=== PATIENT | female | born 1980 | race Two or more races ===

== ENCOUNTER 2021-03-29 03:44 | Inpatient (IN) | payer BC ==
[~2021-03-29] VITALS: Ht 157.5 cm; Wt 56.7 kg
--- NOTE | 2021-03-29 03:55 | NUR ---
blood obtained and sent to lab
--- NOTE | 2021-03-29 03:55 | NUR ---
pt bibself c/o LLQ abd pain and vomiting x6hrs. Pt aaox4 breathing evenly and unlabored. Pt states that she "ate nothing out of the ordinary". Pt attached to monitor and pox. MD at bedside for eval. Pt given blanket and call light with in reach.
[2021-03-29] MEDS ORDERED: MORPHINE SULFATE INJ 2 MG/ML DISP.SYRIN IV ONE ×2 (04:00→06:30)
[2021-03-29] MEDS ORDERED: IV NS 0.9% 1,000 ML BAG IV ONE (04:00)
[2021-03-29] MEDS ORDERED: ONDANSETRON HCL/PF 4 MG/2 ML VIAL IVP ONE (04:00)
[2021-03-29] MEDS ORDERED: ONDANSETRON HCL/PF 4 MG/2 ML VIAL ONE (04:08)
[2021-03-29] MEDS ORDERED: MORPHINE SULFATE INJ 4 MG/ML DISP.SYRIN ONE ×2 (04:09→06:17)
[2021-03-29 04:11] LABS: BILIRUBIN,URINE Negative (NEGATIVE); COLOR,URINE YELLOW (YELLOW); LEUKOCYTE ESTERASE ,URINE Negative (NEGATIVE); NITRITE, URINE Negative (NEGATIVE); PROTEIN,URINE Negative (NEGATIVE); UGLUCOSE Negative (NEGATIVE); UROBILINOGEN,URINE 0.2 EU/dL (0.2)
[2021-03-29 04:14] LABS: BASOPHILS # (AUTO) 0.1 K/uL (0.0-0.2); BASOPHILS % (AUTO) 0.5 % (0.0-2.0); EOSINOPHILS % (AUTO) 0.6 % (0.0-6.0); HEMATOCRIT 36 % (33-45); HEMOGLOBIN 11.6 g/dL (11.5-14.8); LYMPHOCYTES # (AUTO) 1.7 K/uL (0.8-4.8); LYMPHOCYTES % (AUTO) 15.4 % (20.0-44.0); MEAN CORPUSCULAR HGB CONC 32 g/dl (31.0-36.0); MEAN CORPUSCULAR VOLUME 81 fL (82-100); MONOCYTES # (AUTO) 0.6 K/uL (0.1-1.30); MONOCYTES % (AUTO) 5.4 % (2.0-12.0); NEUTROPHILS # (AUTO) 8.8 K/uL (1.8-8.9); NEUTROPHILS % (AUTO) 78.1 % (43.0-81.0); PLATELET COUNT (AUTO) 304 K/uL (150-450); RED BLOOD CELL COUNT(AUTO) 4.43 MIL/uL (4.0-5.2); WHITE BLOOD COUNT (AUTO) 11.3 K/uL (4.3-11.0)
[2021-03-29 04:26] LABS: CALCIUM, SERUM 8.2 mg/dL (8.5-10.1); CREATININE 0.6 mg/dL (0.6-1.3); POTASSIUM 3.8 mmol/L (3.5-5.1)
[2021-03-29 04:32] LABS: ALBUMIN 3.6 g/dL (3.4-5.0); BILIRUBIN,DIRECT 0.1 mg/dL (0.0-0.2); BILIRUBIN,TOTAL 0.4 mg/dL (0.2-1.0)
--- NOTE | 2021-03-29 04:34 | NUR ---
Brought back from CT
--- NOTE | 2021-03-29 05:21 | NUR ---
called opal to have image read
--- NOTE | 2021-03-29 05:43 | NUR ---
radiologist speaking with dr jenkins
--- NOTE | 2021-03-29 05:49 | NUR ---
called Dr Hopkins and left a message
--- NOTE | 2021-03-29 05:53 | NUR ---
AMANDA ESCOBAR PERFUMER PAGED FOR ADMOSSION.
[2021-03-29] MEDS ORDERED: PIPERACILLIN /TAZOBACTAM 3.375 G VIAL IV ONE ×2 (05:54→11:58)
[2021-03-29] MEDS ORDERED: PIPERACILLIN /TAZOBACTAM 3.375 G in IV D5W 50 ML IV ONE (06:00)
--- NOTE | 2021-03-29 06:03 | NUR ---
roshni carpenter speaking with dr jenkins
--- NOTE | 2021-03-29 06:15 | NUR ---
md verbal order 4mg morphine iv
[2021-03-29] MEDS ORDERED: ONDANSETRON HCL/PF 4 MG/2 ML VIAL IVP PRN (06:30)
--- NOTE | 2021-03-29 06:32 | NUR ---
called dr steele, left a message
--- NOTE | 2021-03-29 07:05 | NUR ---
GAVE REPORT TO MARI IBANEZ FOR RANDELL
--- NOTE | 2021-03-29 07:19 | NUR ---
ASSESSED PT ON BED ASLEEP, EASILY AROUSABLE, NOT IN RESPIRATORY DISTRESS, V/S STABLE. KEPT RESTED AND COMFORTABLE. WILL CONTINUE TO MONITOR.
--- NOTE | 2021-03-29 07:43 | NUR ---
DR VELASQUEZ CALLED AND SPOKE WITH DR RODRIGUEZ
--- NOTE | 2021-03-29 07:56 | NUR ---
OBIE POPE CALLED, NO BED AT THIS TIME
[2021-03-29] MEDS: PANTOPRAZOLE 40 MG VIAL IV SCH (09:13)
[2021-03-29] MEDS ORDERED: PANTOPRAZOLE 40 MG VIAL ONE (09:13)
[2021-03-29] MEDS ORDERED: MORPHINE SULFATE INJ 2 MG/ML DISP.SYRIN ONE (10:48)
[2021-03-29] MEDS: MORPHINE SULFATE INJ 2 MG/ML DISP.SYRIN IV PRN ×3 (10:49→22:36)
[2021-03-29] MEDS: PIPERACILLIN /TAZOBACTAM 3.375 G in IV D5W 50 ML IV SCH ×3 (12:08→23:42)
--- NOTE | 2021-03-29 14:12 | NUR ---
room 310-1
--- NOTE | 2021-03-29 14:22 | NUR ---
REPORT GIVEN TO MARI OSBORN FOR RANDELL.
--- NOTE | 2021-03-29 14:40 | NUR ---
pt. brought up to rm. by er.made comfortable.vs taken.
--- NOTE | 2021-03-29 15:00 | NUR ---
PT. REMAINS NPO,PT AND PTT ORDERED AND ADDED TO LABS,PROBABLE SURG. NO WORD FROM SURGEON.
--- NOTE | 2021-03-29 18:00 | NUR ---
SPOUSE IN TO VISIT.
[2021-03-29 20:00] VITALS: BP 100/56
--- NOTE | 2021-03-29 20:00 | NUR ---
Patient is awake, A&Ox4. VSS. IN no distress. Only c/o is tolerable abdominal pain at this time, worst in R lower quadrant. Patient is NPO. Educated that once she is seen by Dr. Hopkins we will be more clear about the appendectomy.
--- NOTE | 2021-03-29 20:30 | NUR ---
Patient seen by Dr. Hopkins, Tomorrow to have laparoscopic appendectomy poss. open exp. laparotomy. Hopefully to be scheduled at [address] Hopkins. educated patient on procedure.
[2021-03-29] MEDS: IV D5/0.45 NACL 1,000 ML IV PRN (21:14)
[2021-03-30] MEDS: PIPERACILLIN /TAZOBACTAM 3.375 G in IV D5W 50 ML IV SCH (05:40)
[2021-03-30] MEDS: MORPHINE SULFATE INJ 2 MG/ML DISP.SYRIN IV PRN ×4 (05:46→22:03)
--- NOTE | 2021-03-30 06:08 | NUR ---
MS RN CLOSING NOTES Patient is A&Ox4, VSS. Slept well. C/o sharp pain to abdomen x2, relieved with PRN Morphine. Tolerating IVF well, stayed NPO. No other overnight issues. Consents signed.
[2021-03-30 06:19] LABS: BASOPHILS % (AUTO) 0.3 % (0.0-2.0); EOSINOPHILS % (AUTO) 0.9 % (0.0-6.0); HEMATOCRIT 33 % (33-45); HEMOGLOBIN 10.7 g/dL (11.5-14.8); LYMPHOCYTES # (AUTO) 1.3 K/uL (0.8-4.8); LYMPHOCYTES % (AUTO) 15.2 % (20.0-44.0); MEAN CORPUSCULAR HGB CONC 33 g/dl (31.0-36.0); MEAN CORPUSCULAR VOLUME 82 fL (82-100); MONOCYTES # (AUTO) 0.5 K/uL (0.1-1.30); MONOCYTES % (AUTO) 5.9 % (2.0-12.0); NEUTROPHILS # (AUTO) 6.9 K/uL (1.8-8.9); NEUTROPHILS % (AUTO) 77.7 % (43.0-81.0); PLATELET COUNT (AUTO) 237 K/uL (150-450); RED BLOOD CELL COUNT(AUTO) 3.99 MIL/uL (4.0-5.2); WHITE BLOOD COUNT (AUTO) 8.8 K/uL (4.3-11.0)
[2021-03-30 07:04] LABS: CALCIUM, SERUM 7.8 mg/dL (8.5-10.1); CREATININE 0.7 mg/dL (0.6-1.3); POTASSIUM 3.8 mmol/L (3.5-5.1)
--- NOTE | 2021-03-30 07:10 | NUR ---
MS RN OPENING NOTE PATIENT ON BED ALERT AND ORIENTED X 4. PATIENT IS ON ROOM AIR WITH NO SIGNS OF RESPIRATORY DISTRESS WITH EVEN AND UNLABORED BREATHING. PATIENT WITH IV ACCESS ON LEFT AC G20 WITH IVF OF D5 1/2NS RUNNING AT 75ML/HR INFUSING WELL. PATIENT KEPT ON NPO FOR PENDING PROCEDURE WITH CONSENTS SIGNED AND ATTACHED TO CHART. SAFETY MEASURES ENSURED. BED LOCKED IN POSITION AND PLACED IN LOWEST POSITION. CALL LIGHT AND BEDSIDE TABLE WITHIN REACH AT ALL TIMES. WILL CONTINUE TO MONITOR PATIENT.
[2021-03-30 08:00] VITALS: BP 93/48
[2021-03-30] MEDS: PANTOPRAZOLE 40 MG VIAL IV SCH (08:52)
[2021-03-30] MEDS ORDERED: BUPIVACAINE MPF 0.5% W/EPI INJ 30 ML VIAL ONE (09:56)
[2021-03-30] MEDS ORDERED: ANESTHESIA TRAY IN PYXIS 1 EA TRAY MC ONE (09:56)
[2021-03-30] MEDS ORDERED: LIDOCAINE 1% INJ 50 ML MDV IJ ONE (09:56)
[2021-03-30] MEDS ORDERED: FENTANYL PF 100MCG/2ML AMPUL ONE (09:57)
[2021-03-30] MEDS ORDERED: ROCURONIUM BROMIDE 50 MG/5 ML ONE (09:58)
--- NOTE | 2021-03-30 10:00 | NUR ---
MS RN NOTES PATIETN PICKED UP BY OR NURSES FOR SCHEDULED PROCEDURE. PATIENT IN STABLE CONDITION. WILL WAIT FOR ANY DEVELOPMENT.
[2021-03-30] MEDS ORDERED: BACITRACIN ZINC OINT PACKET 1 EA PACKET TP ONE (11:19)
[2021-03-30] MEDS: IV D5/0.45 NACL 1,000 ML IV PRN (12:30)
--- NOTE | 2021-03-30 12:40 | NUR ---
MS RN NOTES PATIENT BACK FROM OR WITH NO SIGNS OF DISTRESS. PATIENT IS ALERT AND ORIENTED X 4. COMFORT MEASURES PROVIDED. WITH ORDERS FROM DR. VELASQUEZ, FAXED TO PHARMACY BY OR NURSE. WILL CONTINUE TO MONITOR PATIENT.
[2021-03-30] MEDS: PIPERACILLIN /TAZOBACTAM 3.375 G in IV D5W 100 ML IV SCH ×2 (12:50→21:42)
[2021-03-30] MEDS ORDERED: GABAPENTIN 300 MG CAPSULE PO SCH (14:00)
[2021-03-30] MEDS ORDERED: ACETAMINOPHEN 325 MG TABLET PO SCH (14:00)
[2021-03-30] MEDS ORDERED: IV LR 1000 ML 1,000 ML IV PRN (14:00)
[2021-03-30] MEDS ORDERED: IBUPROFEN 400 MG TABLET PO SCH (14:00)
[2021-03-30 16:00] VITALS: BP 104/57
--- NOTE | 2021-03-30 19:00 | NUR ---
MS RN CLOSING NOTE PATIENT ON BED ALERT AND ORIENTED X 4. PATIENT IS ON ROOM AIR WITH NO SIGNS OF RESPIRATORY DISTRESS WITH EVEN AND UNLABORED BREATHING. PATIENT WITH IV ACCESS ON LEFT HAND G20 WITH IVF OF D5 1/2NS RUNNING AT 75ML/HR INFUSING WELL. PATIENT ON CLEAR LIQUID DIET TOLERATED WELL. PATIENT ALSO AMBULATES AND USES THE BATROOM. WITH POSITIVE FLATUS. ON PAIN MANAGEMENT. SAFETY MEASURES ENSURED. BED LOCKED IN POSITION AND PLACED IN LOWEST POSITION. CALL LIGHT AND BEDSIDE TABLE WITHIN REACH AT ALL TIMES. ENDORSED TO NEXT SHIFT FOR CONTINUITY OF CARE.
--- NOTE | 2021-03-30 19:40 | NUR ---
MSRN RECEIVED AWAKE ON BED WITH IVF INFUSING WELL VIA LEFT HAND. NO NEEDS OF THIS TIME. CONTINUED.
[2021-03-30 20:00] VITALS: BP 94/52
[2021-03-30] MEDS ORDERED: SIMETHICONE 80 MG TAB.CHEW PO PRN ×2 (21:30→22:00)
--- NOTE | 2021-03-30 21:40 | NUR ---
MSRN VERBALIZES FEELING BLOATED ON HER ABDOMEN. NO FLATUS AND PAINFUL. ENCOURAGED AMBULATION, STATED HAS BEEN WALKING AND NO GAS.PLACED CALL TO MD FOR DOUGLASE.
--- NOTE | 2021-03-30 21:45 | NUR ---
MSRN ORDERS RECEIVED. MED GIVEN
[2021-03-31] MEDS: PIPERACILLIN /TAZOBACTAM 3.375 G in IV D5W 100 ML IV SCH (04:40)
[2021-03-31] MEDS: MORPHINE SULFATE INJ 2 MG/ML DISP.SYRIN IV PRN (04:40)
--- NOTE | 2021-03-31 05:49 | NUR ---
MSRN SLEEPING APPEARS COMFORTABLE. CONTINUED MONITORING.
[2021-03-31 06:37] LABS: BASOPHILS % (AUTO) 0.2 % (0.0-2.0); EOSINOPHILS % (AUTO) 0.6 % (0.0-6.0); HEMATOCRIT 30 % (33-45); LYMPHOCYTES # (AUTO) 1.2 K/uL (0.8-4.8); LYMPHOCYTES % (AUTO) 15.4 % (20.0-44.0); MEAN CORPUSCULAR HGB CONC 33 g/dl (31.0-36.0); MEAN CORPUSCULAR VOLUME 83 fL (82-100); MONOCYTES # (AUTO) 0.6 K/uL (0.1-1.30); MONOCYTES % (AUTO) 7.8 % (2.0-12.0); NEUTROPHILS # (AUTO) 6.1 K/uL (1.8-8.9); PLATELET COUNT (AUTO) 222 K/uL (150-450); RED BLOOD CELL COUNT(AUTO) 3.67 MIL/uL (4.0-5.2); WHITE BLOOD COUNT (AUTO) 8.1 K/uL (4.3-11.0)
[2021-03-31 08:00] VITALS: BP 107/66
[2021-03-31] MEDS: PANTOPRAZOLE 40 MG VIAL IV SCH (08:03)
[2021-03-31 08:11] LABS: CALCIUM, SERUM 7.9 mg/dL (8.5-10.1); CREATININE 0.8 mg/dL (0.6-1.3); POTASSIUM 3.8 mmol/L (3.5-5.1)
[2021-03-31] MEDS ORDERED: GABAPENTIN 300 MG CAPSULE PO SCH (13:00)
[2021-03-31] MEDS ORDERED: IBUPROFEN 400 MG TABLET PO SCH (13:00)
[2021-03-31] MEDS ORDERED: ACETAMINOPHEN 325 MG TABLET PO SCH (13:00)
[2021-04-01] MEDS ORDERED: PANTOPRAZOLE 40 MG TABLET.DR PO SCH (07:30)
== END 2021-03-31 15:00 | disposition home or self-care (01) | DRG 343 ==
LOC: ER 03:52 → TRANSITION 06:54 → MED 14:14
PROVIDERS: ADMIT Family Medicine; ATTEND Family Medicine
PROC: 0DTJ4ZZ Resection of Appendix, Percutaneous Endoscopic Approach (ICD-10-PCS; principal; 2021-03-30)
DX: K35.80 Unspecified acute appendicitis (principal); D72.829 Elevated white blood cell count, unspecified; Z20.822 Contact with and (suspected) exposure to COVID-19; R73.9 Hyperglycemia, unspecified; Z83.3 Family history of diabetes mellitus
CPT/HCPCS: 36415; 80048-TC; 80061-TC; 80076-TC; 83690-TC; 83735-TC; 83880; 84703-TC; 85025-TC; 85730-TC; 86850-TC; 87081-TC; 88304-TC; C9113; G0378; J0690; J1100; J2270; J2405; J2543; J2704; J3010; J3490; J7030; J7050; J7060